=== PATIENT | female | born 1950 | race Caucasian/White ===

== ENCOUNTER 2018-02-06 20:44 | Emergency (ER) | payer OTHER, MEDICARE ==
[~2018-02-06] VITALS: Ht 154.9 cm; Wt 51.7 kg
[2018-02-06 21:04] VITALS: Ht 154.9 cm; Wt 51.7 kg
[2018-02-06 22:13] VITALS: BP 137/80
== END 2018-02-06 22:13 | disposition home or self-care (01) ==
LOC: ED 20:44
DX: G89.29 Other chronic pain (principal); M62.838 Other muscle spasm; Z90.710 Acquired absence of both cervix and uterus; Z98.890 Other specified postprocedural states
CPT/HCPCS: J1885; J2270

== ENCOUNTER 2018-02-09 22:31 | Emergency (ER) | payer OTHER, MEDICARE ==
[~2018-02-09] VITALS: Ht 154.9 cm; Wt 51.7 kg
[2018-02-09 22:39] VITALS: Ht 154.9 cm; Wt 51.7 kg
[2018-02-10 00:33] VITALS: BP 114/55
== END 2018-02-10 00:33 | disposition home or self-care (01) ==
LOC: ED 22:31
DX: G35 Multiple sclerosis (principal); G89.29 Other chronic pain; Z90.710 Acquired absence of both cervix and uterus; Z98.890 Other specified postprocedural states
CPT/HCPCS: J1885; J2270; Q0162

== ENCOUNTER 2019-04-07 20:23 | Emergency (ER) | payer OTHER, MEDICARE ==
[~2019-04-07] VITALS: Ht 152.4 cm; Wt 52.2 kg
[2019-04-07 20:28] VITALS: Ht 152.4 cm; Wt 52.2 kg
[2019-04-08 01:06] VITALS: BP 146/79
== END 2019-04-08 01:06 | disposition home or self-care (01) ==
LOC: ED 20:23
DX: M54.5 Low back pain (principal); W18.39XA Other fall on same level, initial encounter; Y93.89 Activity, other specified; Y92.89 Other specified places as the place of occurrence of the external cause; Y99.8 Other external cause status
CPT/HCPCS: J1885; J2270